=== PATIENT | male | born 1985 | race Caucasian/White ===

== ENCOUNTER 2017-04-15 18:46 | Emergency (ER) | payer OTHER ==
[~2017-04-15] VITALS: Ht 175.3 cm; Wt 55.5 kg
[~2017-04-15 18:46] MED LIST: ASPIRIN E.C.81 M1 PO; Keflex PO; Levaquin PO; NOHOMEMEDS; oxyCODONE PO
[2017-04-15 19:03] VITALS: BP 155/74
[2017-04-15] MEDS ORDERED: NAPROSYN500 MG PO (20:29)
[2017-04-15] MEDS ORDERED: SKELAXIN800 MG PO (20:29)
== END 2017-04-15 20:37 | disposition home or self-care (01) ==
LOC: EME 18:46
DX: S39.011A Strain of muscle, fascia and tendon of abdomen, initial encounter (principal); W18.43XA Slipping, tripping and stumbling without falling due to stepping from one level to another, initial encounter; Y93.01 Activity, walking, marching and hiking; Y92.828 Other wilderness area as the place of occurrence of the external cause; F17.200 Nicotine dependence, unspecified, uncomplicated
CPT/HCPCS: 73502; 99281; 99284; J1885

== ENCOUNTER 2018-01-11 10:57 | Emergency (ER) | payer OTHER ==
[~2018-01-11] VITALS: Ht 172.7 cm; Wt 56.7 kg
[~2018-01-11 10:57] MED LIST changes: +NAPROSYN500 MG PO; +SKELAXIN800 MG PO
[2018-01-11 13:31] VITALS: BP 123/101
== END 2018-01-11 13:31 | disposition home or self-care (01) ==
LOC: EME 10:57
DX: S63.91XA Sprain of unspecified part of right wrist and hand, initial encounter (principal); W22.09XA Striking against other stationary object, initial encounter
CPT/HCPCS: 73130; 99281; 99283